=== PATIENT | male | born 1980 | race Caucasian/White ===

== ENCOUNTER 2021-05-05 17:50 | Emergency (ER) | payer MEDICARE, OTHER ==
[2021-05-05 18:10] VITALS: BP 141/99; PULSE 118; RESP 18; TEMP 98.8
[2021-05-05] MEDS ORDERED: MORPHINE SULFATE 4 MG/ML SYRINGE IM STA (18:21)
--- NOTE | 2021-05-05 18:26 | ED ---
Lower Extremity Injury HPI - General Chief Complaint: Extremity Injury, Lower Stated Complaint: R foot pain Source: patient, EMS, RN notes reviewed Mode of arrival: EMS - History of Present Illness Initial Comments: 40-year-old white male, alert and oriented 4, presents to the emergency room after having a metal partition in the bathroom fall onto his foot. Patient states that the pain is 8 out of 10 and has difficulty standing or bearing weight. He denies any other injuries. He states that his tetanus shot is up-to-date. Patient is a smoker. Denies any medical or surgical history. MD Complaint: foot injury (Right) -: hour(s) (1) Injury: Foot: Right Type of Injury: blunt (Metal partition fell on foot) Place: other ([facility] bathroom) Severity: severe Severity scale (1-10): 8 Improves With: cold therapy Worsens With: movement, palpation Context: direct blow Treatments Prior to Arrival: cold therapy - Related Data Home Medications Medication Instructions Recorded Confirmed OLANZapine 20 mg PO HS 05/05/21 05/05/21 OXcarbazepine [Trileptal] 150 mg PO BID 05/05/21 05/05/21 hydrOXYzine pamoate [Vistaril] 50 mg PO HS 05/05/21 05/05/21 Review of Systems ROS Statement: Those systems with pertinent positive or pertinent negative responses have been documented in the HPI. ROS Other: All systems not noted in ROS Statement are negative. General Exam General appearance: alert, in no apparent distress Head exam: Present: atraumatic, normocephalic, normal inspection Eye exam: Present: normal appearance, PERRL, EOMI. Absent: scleral icterus, conjunctival injection, periorbital swelling Pupils: Present: normal accommodation ENT exam: Present: normal exam, normal oropharynx, mucous membranes moist Neck exam: Present: normal inspection, full ROM. Absent: tenderness, meningismus, lymphadenopathy, thyromegaly Respiratory exam: Present: normal lung sounds bilaterally. Absent: respiratory distress, wheezes, rales, rhonchi, stridor, chest wall tenderness, accessory muscle use, decreased breath sounds Cardiovascular Exam: Present: tachycardia GI/Abdominal exam: Present: soft, normal bowel sounds. Absent: distended, tenderness, guarding, rebound, rigid Right Foot/Toe exam: Present: tenderness, swelling, abrasion, ecchymosis. Absent: crepitus Neurovascular tendon exam: Present: no vascular compromise. Absent: pulse deficit, abnormal cap refill, extremity cold to touch Back exam: Present: full ROM. Absent: tenderness, CVA tenderness (R), CVA tenderness (L), muscle spasm, paraspinal tenderness, vertebral tenderness Neurological exam: Present: alert, oriented X3, CN II-XII intact Psychiatric exam: Present: normal affect, normal mood Skin exam: Present: warm, dry, intact, normal color. Absent: rash, cyanosis, diaphoretic, erythema, petechiae, pallor, mottled Course Vital Signs 05/05/21 18:02 Temperature 98.8 F Pulse Rate 118 H Respiratory 18 Rate Blood Pressure 141/99 O2 Sat by Pulse 97 Oximetry Medical Decision Making - Medical Decision Making X-ray of the right ankle and the right foot show no acute abnormalities. There is a trace joint effusion noted and minimal soft tissue swelling over the dorsum of the proximal foot. There is no neurovascular deficits. Patient's tetanus shot is up-to-date. He'll be placed in a postop shoe and directed to follow up with ortho for continuation of care. Case discussed with Dr. Heredia Disposition Clinical Impression: Foot injury Disposition: HOME SELF-CARE Condition: Good Instructions (If sedation given, give patient instructions): Foot Contusion (ED), Foot Sprain (ED) Additional Instructions: Tylenol and or Motrin for pain. Rest ice and elevate at home. Is patient prescribed a controlled substance at d/c from ED?: No Referrals: Ainsley Russ MD [Primary Care Provider] - 1-2 days Hemant Valenzuela MD [STAFF PHYSICIAN] - 1-2 days Time of Disposition: 21:10
[2021-05-05] MEDS ORDERED: IBUPROFEN 600 MG TAB PO STA (19:28)
[2021-05-05] MEDS ORDERED: HYDROcodone/APAP 5-325MG 1 EACH TAB PO STA (19:29)
--- NOTE | 2021-05-05 20:49 | XR ---
EXAMINATION TYPE: XR foot complete RT, XR ankle complete RT DATE OF EXAM: 05/05/2021 COMPARISON: NONE HISTORY: 40 years Male. STUDY INDICATION GIVEN: pain . TECHNIQUE: Right ankle 3 views Right foot 3 views FINDINGS AND IMPRESSION: No acute osseous or articular abnormalities seen in the ankle or foot. Lisfranc joint space does not appear abnormally widened. Trace joint effusion noted. Minimal soft tissue swelling over the dorsum of the wall and proximal phoebe t. Accessory navicular bone noted.
[2021-05-05] MEDS ORDERED: ACET/COD 300 MG/30 MG STARTER PACK 6 TAB BTL PO STA (21:10)
== END 2021-05-05 21:29 | disposition home or self-care (01) ==
LOC: EC 17:50
DX: S90.811A Abrasion, right foot, initial encounter (principal); M25.474 Effusion, right foot; F17.200 Nicotine dependence, unspecified, uncomplicated; W20.8XXA Other cause of strike by thrown, projected or falling object, initial encounter
CPT/HCPCS: 99283; 96372; 73610; 73630; J2270